=== PATIENT | female | born 1960 | race African-American/Black ===

== ENCOUNTER → 2020-03-29 | Outpatient (CLI) | payer OTHER | LOC: CT 07:30 | PROVIDERS: ATTEND Internal Medicine Geriatric Medicine | DX: G47.30 Sleep apnea, unspecified (principal); E66.9 Obesity, unspecified; G47.00 Insomnia, unspecified; R06.83 Snoring; D35.2 Benign neoplasm of pituitary gland; M25.552 Pain in left hip; Z12.2 Encounter for screening for malignant neoplasm of respiratory organs | CPT/HCPCS: 70486; 71250 ==